=== PATIENT | male | born 1960 | race Two or more races ===

== ENCOUNTER 2021-09-01 07:36 | Emergency (ER) | payer OTHER ==
[~2021-09-01] VITALS: Ht 170.2 cm; Wt 79.8 kg
[2021-09-01] MEDS ORDERED: VITAMIN C500 M6 PO (08:02)
[2021-09-01] MEDS ORDERED: LOSARTAN POTASS50 MG PO (08:02)
[2021-09-01] MEDS ORDERED: GLUMETZA500 MG PO (08:02)
[2021-09-01] MEDS ORDERED: VITAMIN D3125 MC1 PO (08:03)
== END 2021-09-01 10:29 | disposition home or self-care (01) ==
LOC: ER 07:36
DX: S39.92XA Unspecified injury of lower back, initial encounter (principal); W10.9XXA Fall (on) (from) unspecified stairs and steps, initial encounter; Y93.9 Activity, unspecified; Y92.019 Unspecified place in single-family (private) house as the place of occurrence of the external cause